=== PATIENT | female | born 1950 | race Caucasian/White ===

== ENCOUNTER 2022-02-03 11:23 | Emergency (ER) | payer MEDICARE ==
[2022-02-03 12:05] LABS: Absolute Neutrophil Ct (ANC) 4.91 x10^3/uL (1.4-6.9); Basophil (Absolute #) 0.02 x10^3/uL (0-0.4); Eosinophil % 1.3 % (0.00-5.0); Eosinophil (Absolute #) 0.08 x10^3/uL (0-0.5); Hemoglobin 11.9 g/dL (12.0-16.0); Lymphocyte (Absolute #) 0.72 x10^3/uL (1.0-4.6); Lymphocytes % 11.7 % (24.0-44.0); Mean Corpuscular Hemoglobin 31.1 pg (26-32); Mean Corpuscular Hgb Concent. 33.1 g/dL (32-36); Mean Platelet Volume 9.4 fL (7.5-11.0); Monocyte (Absolute #) 0.39 x10^3/uL (0.0-1.3); Monocytes % 6.3 % (0.0-12.0); Neutrophil % 79.8 % (36.0-66.0); Platelet Count 189 x10^3/uL (150-450); Red Blood Count 3.83 x10^6/uL (4.1-5.4); Red Cell Distribution Width 14.3 % (11.5-14.0); White Blood Count 6.2 x10^3/uL (4.0-10.5)
--- NOTE | 2022-02-03 12:25 | XRAY ---
Exam: AP upright portable chest film from 02/03/2022. Comparison: CT of the chest without IV contrast from 06/14/2021. Indication: 71-year-old female with chest pain. Findings: The transverse heart size appears towards the upper limits of normal. I believe there is some coronary artery vascular calcification overlying the left side of the heart. Calcification of the aortic arch and mild tortuosity of the descending thoracic aorta are seen. The aisha and mediastinal structures appear otherwise unremarkable. No significant central perihilar vascular congestion is seen. There is a minimal pleural reaction within a fissure overlying the right midlung field. Mild plate atelectasis is seen at the lateral left lung base. There are mild bibasilar pleural effusions, left greater than right. No definite air space infiltrates are seen. There is some deviation of the upper lumbar spine toward the right at the inferior margin of the film. The CT bank courier film from 06/14/2021 suggests a mild rotary dextroscoliosis centered at L1-L2. Impression: 1. The heart size appears towards the upper limits of normal. In addition, I see mild bibasilar pleural effusions, left greater than right. Correlate clinically regarding mild chronic CHF or fluid volume overload. I note some apparent coronary artery calcification overlying the left aspect of the heart. 2. Mild discoid atelectasis is seen at the lateral left lung base. 3. No definite air space infiltrates or other acute cardiopulmonary disease is seen.
[2022-02-03 12:59] LABS: ALBUMIN 4.2 g/dL (3.5-5.0); ANION GAP 13.3 MEQ/L (5-15); BILIRUBIN,TOTAL 0.6 mg/dL (0.2-1.3); Calcium 10.1 mg/dL (8.4-10.2); Creatinine 1 3.43 mg/dL (0.52-1.04); Potassium 3.5 mmol/L (3.5-5.1); Total Protein 7.7 g/dL (6.3-8.2)
[2022-02-03] MEDS ORDERED: CLONIDINE 0.1 MG TABLET PO ONE ×2 (13:03→13:40)
--- NOTE | 2022-02-03 13:03 | ERPHSYRPT ---
- History of Present Illness Time Seen by Provider: 02/03/22 11:35 Historian: patient Exam Limitations: no limitations Patient Subjective Stated Complaint: Pt was at dialysis and began having chest pain that lasted for 10 minutes Triage Nursing Assessment: Pt brought to the ER by EMS, hypertensive, denies chest pain at this time but does have arm pain from an injury this past month, pulses normal, skin n/w/d, no jvd, doesn't appear to be in any distress Physician History: Patient is a 71-year-old dialysis patient who was in dialysis when she developed chest pain and high blood pressure. She was sent from dialysis because of this chest pain. She arrived by ambulance she denies any chest pain on arrival she denies any shortness of breath her risk factors include hypertension diabetes smoking but negative for family history her cholesterol. Timing/Duration: today Activities at Onset: other (Patient was finishing dialysis) Quality: pressure Location: central Chest Pain Radiation: no radiation Severity of Pain-Max: moderate Severity of Pain-Current: none Modifying Factors: Improves With: rest Nitro Today/Relief: no nitro taken today Aspirin Treatment Today: no aspirin today Allergies/Adverse Reactions: azithromycin [From Zithromax] Allergy (Verified 02/03/22 11:47) erythromycin base Allergy (Verified 02/03/22 11:47) Penicillins Allergy (Verified 02/03/22 11:47) shellfish derived Allergy (Verified 02/03/22 11:47) Travel Risk - International Travel Have you traveled outside of the country in past 3 weeks: No - Coronavirus Screening Are you exhibiting any of the following symptoms?: No Close contact with a COVID-19 positive Pt in past 14-21 Days: No - Vaccine Status Have you recieved a Covid-19 vaccination: Yes 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: [employer] - Vaccination Dates Date of 2cond Vaccination (if applicable): 2020 - Past Medical History Pertinent Past Medical History: Yes ENT History: Other Cardiac History: Hypertension Respiratory History: COPD Endocrine Medical History: Diabetes Type II, Other Musculoskeletal History: Degenerative Disk Disease, Fractures History: Dialysis, Renal Disease Other Medical History: neuropathy in feet - Past Surgical History Past Surgical History: Yes Cardiac: Cardiac Stent Musculoskeletal: Orthopedic Surgery Female Surgical History: Hysterectomy - Social History Smoking Status: Current every day smoker Exposure to second hand smoke: Yes Drug Use: none Patient Lives Alone: No - Nursing Vital Signs Nursing Vital Signs: Initial Vital Signs Pulse Rate 67 08/05/22 11:28 Respiratory Rate 16 02/03/22 11:28 Blood Pressure 197/77 02/03/22 11:28 O2 Sat by Pulse Oximetry 97 02/03/22 11:28 Pain Scale Pain Intensity 5 - Physical Exam General Appearance: mild distress Eye Exam: PERRL/EOMI, eyes nml inspection Ears, Nose, Throat Exam: normal ENT inspection, moist mucous membranes Neck Exam: normal inspection, non-tender, supple, full range of motion Respiratory Exam: normal breath sounds, lungs clear, No respiratory distress Cardiovascular Exam: regular rate/rhythm, normal heart sounds Gastrointestinal/Abdomen Exam: soft, No tenderness, No mass Pelvic Exam: not done Rectal Exam: deferred Back Exam: normal inspection, No CVA tenderness, No vertebral tenderness Extremity Exam: other (Patient has a recent injury to the left upper extremity which apparently is caused a neuropathy primarily affecting the radial nerve she cannot extend her fingers that is under treatment by her PCP and other specialist.) Neurologic Exam: alert, oriented x 3, motor deficits (Left extremity) Skin Exam: normal color, warm, dry SpO2 Interpretation: normal SpO2: 94 O2 Delivery: Room Air - Course Nursing assessment & vital signs reviewed: Yes EKG Interpreted by Me: RATE (67), Sinus Rhythm, prolonged QT interval, Other (Poor R wave progression slightly prolonged QT interval) - Radiology Exams Chest X-ray Interpretation: Reviewed by me Ordered Tests: Active Orders 24 hr Category Date Time Status EKG-ER Only STAT Care 02/03/22 11:39 Active IV Insertion STAT Care 02/03/22 11:39 Active CHEST 1 VIEW (PORTABLE) Stat Exams 02/03/22 11:40 Completed CBC W DIFF Stat Lab 02/03/22 12:00 Completed CMP Stat Lab 02/03/22 12:00 Completed Lactic Acid Stat Lab 02/03/22 11:55 Completed NT PRO BNP Stat Lab 02/03/22 12:00 Completed TROPONIN Q4HX3 Lab 02/03/22 12:00 Completed UA W/RFX CULTURE Stat Lab 02/03/22 Ordered Medication Summary Discontinued Medications Generic Name Dose Route Start Last Admin Trade Name Freq PRN Reason Stop Dose Admin Clonidine Confirm 02/03/22 13:04 Clonidine Hcl 0.1 Mg Tablet Administered 02/03/22 13:05 Dose 0.1 mg .ROUTE .STK-MED ONE Clonidine 0.1 mg 02/03/22 13:03 02/03/22 13:06 Clonidine Hcl 0.1 Mg Tablet PO 02/03/22 13:04 0.1 mg STAT ONE Administration Clonidine 0.1 mg 02/03/22 13:40 02/03/22 13:49 Clonidine Hcl 0.1 Mg Tablet PO 02/03/22 13:41 0.1 mg STAT ONE Administration Clonidine Confirm 02/03/22 13:46 Clonidine Hcl 0.1 Mg Tablet Administered 02/03/22 13:47 Dose 0.1 mg .ROUTE .STK-MED ONE Hydralazine HCl 100 mg 02/03/22 13:38 02/03/22 13:45 Hydralazine Hcl 25 Mg Tablet PO 02/03/22 13:39 Not Given ONCE STA Hydralazine HCl 100 mg 02/03/22 13:45 02/03/22 13:49 Hydralazine Hcl 20 Mg/Ml Vial IV 02/03/22 13:46 100 mg STAT ONE Administration Hydralazine HCl Confirm 02/03/22 13:47 Hydralazine Hcl 20 Mg/Ml Vial Administered 02/03/22 13:48 Dose 100 mg .ROUTE .[facility] ONE Lab/Rad Data: Laboratory Result Diagrams 02/03/22 12:00 02/03/22 12:00 Laboratory Results 02/03/22 02/03/22 02/03/22 Range/Units 12:00 12:00 12:00 WBC 6.2 (4.0-10.5) x10^3/uL RBC 3.83 L (4.1-5.4) x10^6/uL Hgb 11.9 L (12.0-16.0) g/dL Hct 36.0 (35-47) % MCV 94.0 (78-100) fL MCH 31.1 (26-32) pg MCHC 33.1 (32-36) g/dL RDW 14.3 H (11.5-14.0) % Plt Count 189 (150-450) x10^3/uL MPV 9.4 (7.5-11.0) fL Gran % 79.8 H (36.0-66.0) % Immature Gran % (Auto) 0.6 H (0.00-0.4) % Nucleat RBC Rel Count 0.0 (0.00-0.1) % Eos # (Auto) 0.08 (0-0.5) x10^3/uL Immature Gran # (Auto) 0.04 H (0.00-0.03) x10^3u/L Absolute Lymphs (auto) 0.72 L (1.0-4.6) x10^3/uL Absolute Monos (auto) 0.39 (0.0-1.3) x10^3/uL Absolute Nucleated RBC 0.00 (0.00-0.01) x10^3u/L Lymphocytes % 11.7 L (24.0-44.0) % Monocytes % 6.3 (0.0-12.0) % Eosinophils % 1.3 (0.00-5.0) % Basophils % 0.3 (0.0-0.4) % Absolute Granulocytes 4.91 (1.4-6.9) x10^3/uL Basophils # 0.02 (0-0.4) x10^3/uL Sodium 135 L (137-145) mmol/L Potassium 3.5 (3.5-5.1) mmol/L Chloride 97 L (98-107) mmol/L Carbon Dioxide 28 (22-30) mmol/L Anion Gap 13.3 (5-15) MEQ/L BUN 18 H (7-17) mg/dL Creatinine 3.43 H (0.52-1.04) mg/dL Estimated GFR 14.0 ML/MIN Glucose 123 H (74-106) mg/dL Lactic Acid (0.4-2.0) Calcium 10.1 (8.4-10.2) mg/dL Total Bilirubin 0.60 (0.2-1.3) mg/dL AST 31 (14-36) U/L ALT 20 (0-35) U/L Alkaline Phosphatase 89 (38-126) U/L Troponin I 0.021 (0.000-0.034) ng/mL NT-Pro-B Natriuret Pep 00656 H (0-900) pg/mL Serum Total Protein 7.7 (6.3-8.2) g/dL Albumin 4.2 (3.5-5.0) g/dL 02/03/22 Range/Units 11:55 WBC (4.0-10.5) x10^3/uL RBC (4.1-5.4) x10^6/uL Hgb (12.0-16.0) g/dL Hct (35-47) % MCV (78-100) fL MCH (26-32) pg MCHC (32-36) g/dL RDW (11.5-14.0) % Plt Count (150-450) x10^3/uL MPV (7.5-11.0) fL Gran % (36.0-66.0) % Immature Gran % (Auto) (0.00-0.4) % Nucleat RBC Rel Count (0.00-0.1) % Eos # (Auto) (0-0.5) x10^3/uL Immature Gran # (Auto) (0.00-0.03) x10^3u/L Absolute Lymphs (auto) (1.0-4.6) x10^3/uL Absolute Monos (auto) (0.0-1.3) x10^3/uL Absolute Nucleated RBC (0.00-0.01) x10^3u/L Lymphocytes % (24.0-44.0) % Monocytes % (0.0-12.0) % Eosinophils % (0.00-5.0) % Basophils % (0.0-0.4) % Absolute Granulocytes (1.4-6.9) x10^3/uL Basophils # (0-0.4) x10^3/uL Sodium (137-145) mmol/L Potassium (3.5-5.1) mmol/L Chloride (98-107) mmol/L Carbon Dioxide (22-30) mmol/L Anion Gap (5-15) MEQ/L BUN (7-17) mg/dL Creatinine (0.52-1.04) mg/dL Estimated GFR ML/MIN Glucose (74-106) mg/dL Lactic Acid 0.8 (0.4-2.0) Calcium (8.4-10.2) mg/dL Total Bilirubin (0.2-1.3) mg/dL AST (14-36) U/L ALT (0-35) U/L Alkaline Phosphatase (38-126) U/L Troponin I (0.000-0.034) ng/mL NT-Pro-B Natriuret Pep (0-900) pg/mL Serum Total Protein (6.3-8.2) g/dL Albumin (3.5-5.0) g/dL - Progress Progress: improved Air Movement: good Blood Culture(s) Obtained: No Antibiotics given: No - Departure Departure Disposition: Home Clinical Impression: Chest pain, Hypertension Condition: Stable Critical Care Time: No Referrals: MARTHA LANDERS [Primary Care Provider] - Follow up/PCP as directed Instructions: Chest Pain (DC) Additional Instructions: Patient was instructed to follow-up with her corporate security manager who is treating her blood pressure which is Dr. Bradley and to use the increased hydralazine dose
[2022-02-03] MEDS ORDERED: CLONIDINE 0.1 MG TABLET ONE ×2 (13:04→13:46)
[2022-02-03] MEDS ORDERED: Apresoline 25 MG TABLET PO STA (13:38)
[2022-02-03] MEDS ORDERED: APRESOLINE 20 MG/ML INJ IV ONE (13:45)
[2022-02-03] MEDS ORDERED: APRESOLINE 20 MG/ML INJ ONE (13:47)
[2022-02-03 14:09] VITALS: PULSE 63
[2022-02-03 15:11] VITALS: BP 171/67; O2SAT 99
== END 2022-02-03 15:29 | disposition home or self-care (01) ==
LOC: ED 11:23
DX: R07.9 Chest pain, unspecified (principal); I12.0 Hypertensive chronic kidney disease with stage 5 chronic kidney disease or end stage renal disease; E11.22 Type 2 diabetes mellitus with diabetic chronic kidney disease; N18.6 End stage renal disease; Z99.2 Dependence on renal dialysis; J44.9 Chronic obstructive pulmonary disease, unspecified; E11.42 Type 2 diabetes mellitus with diabetic polyneuropathy; Z72.0 Tobacco use
CPT/HCPCS: 36000; 36415; 71045; 80053; 83605; 83880; 84484; 85025; 93005; 96374; 99284; J0360; A9270-GY

== ENCOUNTER 2022-10-16 12:23 | Day surgery (SDC) | payer MEDICARE ==
[2022-10-16 13:28] LABS: Hematocrit 33.1 % (35-47); Mean Cell Volume 97.1 fL (78-100); Mean Corpuscular Hemoglobin 32.3 pg (26-32); Mean Corpuscular Hgb Concent. 33.2 g/dL (32-36); Mean Platelet Volume 9.9 fL (7.5-11.0); Platelet Count 285 x10^3/uL (150-450); Red Blood Count 3.41 x10^6/uL (4.1-5.4); Red Cell Distribution Width 15.5 % (11.5-14.0); White Blood Count 5.5 x10^3/uL (4.0-10.5)
[2022-10-16] MEDS ORDERED: CLINDAMYCIN-D5W 900 MG/50 ML*** 900 MG/50 ML BAG IV SCH (13:30)
[2022-10-16] MEDS ORDERED: Lactated Ringers 1,000 ML IV SCH (13:30)
[2022-10-16] MEDS ORDERED: Lactated Ringers 1,000 ML IV ONE (13:51)
[2022-10-16] MEDS ORDERED: CLINDAMYCIN-D5W 900 MG/50 ML*** 900 MG/50 ML BAG IV ONE (13:51)
[2022-10-16 14:04] LABS: ANION GAP 16.4 MEQ/L (5-15); BILIRUBIN,TOTAL 0.9 mg/dL (0.2-1.3); Calcium 10.2 mg/dL (8.4-10.2); Creatinine 1 2.84 mg/dL (0.52-1.04); EST GLOMERULAR FILTRATION RATE 17.5 ML/MIN; Total Protein 9.4 g/dL (6.3-8.2)
[2022-10-16] MEDS ORDERED: Versed 2 MG/2 ML Injection ONE (15:00)
[2022-10-16] MEDS ORDERED: Marcaine Mpf 0.5% Vial 30 Ml ONE (15:06)
[2022-10-16] MEDS ORDERED: NORCO 5/325 MG PO PRN (16:25)
[2022-10-16] MEDS ORDERED: Compazine 5 MG PO PRN (17:12)
[2022-10-16] MEDS ORDERED: MILK OF MAGNESIA 30 ML PO PRN (17:12)
[2022-10-16] MEDS ORDERED: NON-FORMULARY ITEM (Albuterol Sulfate [Proair Respiclick] 90 MCG Aer.Pow.Ba) IH PRN (17:12)
[2022-10-16] MEDS ORDERED: TYLENOL EXTRA STRENGTH 500 MG PO PRN (17:12)
[2022-10-16] MEDS ORDERED: ULTRAM 50 MG PO PRN (17:12)
[2022-10-16] MEDS ORDERED: VELTASSA PO SCH (17:15)
[2022-10-16] MEDS ORDERED: VENTOLIN COMMON CANISTER IH PRN (17:23)
[2022-10-16] MEDS ORDERED: MEDICATION INTERVENTION MC SCH ×2 (17:45)
[2022-10-16] MEDS ORDERED: HUMALOG SQ PRN (17:45)
[2022-10-16] MEDS: CLONIDINE 0.1 MG TABLET PO SCH ×2 (18:00→21:09)
[2022-10-16] MEDS: Apresoline 25 MG TABLET PO SCH ×2 (18:00→21:09)
[2022-10-16] MEDS: Imdur 60MG PO SCH (18:00)
[2022-10-16] MEDS: Lantus Insulin SQ SCH (18:02)
[2022-10-16] MEDS: NORCO 5/325 MG PO PRN (19:15)
[2022-10-16] MEDS: Zestril 20 MG PO SCH (21:10)
[2022-10-16] MEDS: xanAX 0.5 MG PO SCH ×2 (21:10→21:14)
[2022-10-16] MEDS: Protonix 40MG Tablet PO SCH (21:10)
[2022-10-16] MEDS: Trandate 100 MG PO SCH (21:10)
[2022-10-16] MEDS ORDERED: MELATONIN 3 MG PO SCH (22:00)
[2022-10-16] MEDS ORDERED: DOXAZOSIN MESYLATE 4 MG PO SCH (22:00)
[2022-10-16] MEDS ORDERED: MELATONIN PO SCH (22:00)
[2022-10-16] MEDS ORDERED: NON-FORMULARY ITEM (Hydralazine Hcl [Hydralazine Hcl] 100 MG Tablet) PO SCH (22:00)
[2022-10-16] MEDS ORDERED: xanAX 0.25 MG PO SCH (22:00)
[2022-10-17] MEDS: NORCO 5/325 MG PO PRN ×2 (03:06→09:18)
[2022-10-17] MEDS ORDERED: NON-FORMULARY ITEM (Insulin Lispro 1 UNIT Ml) SQ SCH (10:00)
[2022-10-17] MEDS ORDERED: MINOXIDIL 10 MG PO SCH (10:00)
[2022-10-17] MEDS: CLONIDINE 0.1 MG TABLET PO SCH (10:29)
[2022-10-17] MEDS: Protonix 40MG Tablet PO SCH (10:30)
[2022-10-17] MEDS: Apresoline 25 MG TABLET PO SCH ×2 (10:30→13:29)
[2022-10-17] MEDS: Imdur 60MG PO SCH (10:31)
[2022-10-17] MEDS: Lantus Insulin SQ SCH (10:31)
[2022-10-17] MEDS: xanAX 0.5 MG PO SCH (10:37)
[2022-10-17] MEDS: Zestril 20 MG PO SCH (11:11)
[2022-10-17] MEDS: Trandate 100 MG PO SCH (11:30)
[2022-10-17 11:38] VITALS: O2SAT 95
[2022-10-17 13:29] VITALS: BP 138/60
--- NOTE | 2022-10-17 13:36 | OP ---
SURGERY DATE/TIME: 10/16/2022 1519 PREOPERATIVE DIAGNOSES: 1) Osteomyelitis right great toe. 2) End stage renal disease. 3) Diabetic foot ulcer. 4) Peripheral neuropathy. 5) Diabetes mellitus type II. POSTOPERATIVE DIAGNOSES: 1) Osteomyelitis right great toe. 2) End stage renal disease. 3) Diabetic foot ulcer. 4) Peripheral neuropathy. 5) Diabetes mellitus type II. PROCEDURE: Open amputation right hallux metatarsophalangeal joint. SURGEON: Miguel Ovalle DPM. CARPENTER SUPERVISOR WOODEN SHIP: None. ANESTHESIA: Local. HEMOSTASIS: Pressure dressing. ESTIMATED BLOOD LOSS: Less than 10 cc. MATERIALS: 3-0 Nylon and 0.25 inch Iodoform packing. INJECTABLES: 24 cc of a 1:1 mixture of 1% lidocaine plain and 0.5% bupivacaine plain injected in a Mart block-type fashion. INDICATION FOR SURGERY: Jyotsna is a very pleasant 71-year-old female well known to my service for a wound that developed over the lateral aspect of her great toe approximately six weeks ago. The patient does have multiple comorbidities including but not limited to end stage renal disease, peripheral neuropathy, diabetes mellitus and over the last several days we have proven that she has osteomyelitis which was confirmed with MRI as well as peripheral vascular disease which is being addressed by Dr. Guerrero. Discussion was held in regards to options for patient due to the fact that she does have peripheral vascular disease and end stage renal disease. An infection could be catastrophic and the decision was made to proceed with an amputation in order to prevent the possibility of sepsis and difficulty with IV antibiotics getting rid of the infection. The patient at this time has been managed with oral antibiotics however not been improving. The wound has gotten worse over the last six weeks and at this time agrees to proceed with the amputation. This has been planned in close proximity with her peripheral vascular surgeon, Dr. Guerrero, who was going to proceed on Sunday of next week and revascularize the bilateral lower extremities for the multiple blockages that had been seen giving her a better chance of proceeding without any further amputations at this time. The patient understands all risks, complications and benefits of surgical intervention at this time including but not limited to infection, hematoma, seroma, possibility of delayed wound healing, nonwound healing and possibility of repeat infection and possibility of need for further surgical intervention at a later date. No guarantees have been provided as to the outcome of surgical intervention. Plenty of time was allowed for the patient as well as her daughter to ask questions which were answered to her apparent satisfaction. It is with that we proceed. DESCRIPTION OF PROCEDURE AND FINDINGS: The patient is brought into the OR and placed and placed on the OR table in the supine position. At this time the right lower extremity was prepped and draped in the typical sterile fashion and lower onto the surgical field. At this time, a 24 cc injunction consisting of a 1:1 mixture of 1% lidocaine plain and 0.5% bupivacaine plain was injected in a Mart block-type fashion to the right hallux. At this time a medial racket incision was made utilizing a 10 blade which was carried down to the level of bone. Following this the joint was disarticulated while keeping full thickness flaps to any remaining soft tissue. At this time a 1 liter bag of Bactisure was utilized to flush the surgical site which was then followed by 3 liters of sterile saline. Following this 3-0 Nylon was utilized in a trauma stitch type fashion to partially coapt the surgical site. The central aspect of the surgical site was then packed utilizing iodine soaked 0.25 inch Iodoform packing. Following this, a dressing consisting of iodine, Adaptic, 4x4, Kerlix, ABD and NASRA was applied with minimal compression to the right lower extremity. The patient was then returned to the postoperative anesthesia care unit with vital signs stable and vascular status intact. Postoperative orders as indicated in the patient's discharge chart.
[2022-10-17 14:50] VITALS: PULSE 65
== END 2022-10-17 12:51 | disposition home or self-care (01) ==
LOC: SDC 12:23 → MED SURG 16:25 → SDC 10-17 12:51
PROVIDERS: ATTEND Podiatrist Foot & Ankle Surgery
DX: E11.69 Type 2 diabetes mellitus with other specified complication (principal); E11.621 Type 2 diabetes mellitus with foot ulcer; E11.22 Type 2 diabetes mellitus with diabetic chronic kidney disease; M86.9 Osteomyelitis, unspecified; N18.9 Chronic kidney disease, unspecified; G62.9 Polyneuropathy, unspecified; F41.9 Anxiety disorder, unspecified
CPT/HCPCS: 36415; 80053; 82947; 85027; 87070; 87075; A6260; J2250; A9270-GY

== ENCOUNTER 2022-10-23 12:56 | Day surgery (SDC) | payer MEDICARE ==
[~2022-10-23 12:56] MED LIST: Marcaine Mpf 0.5% Vial 30 Ml ONE; Xylocaine 1% Vial 30 ML PF IJ ONE
[2022-10-23] MEDS ORDERED: Versed 2 MG/2 ML Injection IV ONE (12:57)
[2022-10-23] MEDS ORDERED: CLINDAMYCIN-D5W 900 MG/50 ML*** 900 MG/50 ML BAG IV STA (13:35)
[2022-10-23] MEDS ORDERED: Sodium Chloride 0.9% 1000 ML 1,000 ML IV SCH (13:45)
[2022-10-23 14:03] VITALS: PULSE 79; O2SAT 97
[2022-10-23 16:38] VITALS: BP 181/78
--- NOTE | 2022-10-24 09:50 | OP ---
SURGERY DATE/TIME: 10/23/2022 1532 PREOPERATIVE DIAGNOSES: 1) Osteomyelitis right great toe. 2) Diabetic foot wound. 3) Peripheral vascular disease. 4) Peripheral neuropathy secondary to diabetes type II. 5) Pain right foot. POSTOPERATIVE DIAGNOSES: 1) Osteomyelitis right great toe. 2) Diabetic foot wound. 3) Peripheral vascular disease. 4) Peripheral neuropathy secondary to diabetes type II. 5) Pain right foot. PROCEDURE: Incision and drainage with bone debridement right foot as well as delayed primary closure. SURGEON: Miguel Ovalle DPM. SOUND TECHNICIAN SUPERVISOR: None. ANESTHESIA: None. The patient is largely neuropathic. HEMOSTASIS: Pressure dressing. ESTIMATED BLOOD LOSS: Minimal. INJECTABLES: None. INDICATION FOR SURGERY: Jyotsna is a very pleasant 71-year-old female who presented to my service several weeks ago with concern of an ingrown toenail to the right lower extremity this was taken care of with a procedure in office that was noninvasive just relieving with nail nipper. Following this there was some difficulty with healing this area. The patient does have long standing history of peripheral vascular disease as well as neuropathy to the right lower extremity. At this time the patient did have MRI and this was diagnosed to have osteomyelitis. Options were discussed with the patient and in coordination with peripheral vascular surgery we have decided to proceed with eradicating the infection and closure prior to her getting revascularization to the right lower extremity tomorrow. The patient has already undergone the first stage of the procedure that included the amputation of the proximal and distal phalanx of the right great toe. At this time the patient understands all risks, complications and benefits of surgical intervention at this time including but not limited to infection, hematoma, seroma, possibility of delayed wound healing or nonwound healing and possibility recurrent infection and possibility of need for repeat surgical intervention at a later date. No guarantees were provided as to the outcome of surgical intervention. It is with that we decided to proceed at this time. DESCRIPTION OF PROCEDURE AND FINDINGS: The patient is brought into the OR and placed on the OR table in the supine position. At this time the right lower extremity prepped and draped in the typical sterile fashion and lowered onto the surgical field. At this time attention was directed to the open area at the distal tip of the amputation site this was deepened along the fascial planes removing the suture. It demonstrated some residual hematoma however no significant indicators of bone infection or soft tissue infection. The edge was incised demonstrating a poorly healing edge. Hopefully this will be resolved with Dr. Guerrero with the revascularization. At this time bone debridement was performed utilizing a combination of rongeurs and curettes to the first metatarsal. Following this, copious amounts of sterile saline were utilized in Pulsavac-type fashion to flush the surgical site. Following this, a 15 blade was utilized to plan for closure of the wound. At this time a complex closure of the wound was carried out utilizing 4-0 Monocryl in a simple buried interrupted-type fashion as well as 3-0 Nylon for skin closure in a horizontal mattress-type fashion for eversion of the skin edges. Following this, a dressing consisting of Betadine, Adaptic, 4x4, Kerlix and NASRA was then applied to the patient's right lower extremity. The patient was then returned to the preoperative care unit with vital signs and vascular status intact. The patient handled the anesthesia as well as the procedure without significant complication. Postoperative orders as indicated in the patient's discharge chart.
== END 2022-10-23 16:30 | disposition home or self-care (01) ==
LOC: SDC 12:56
PROVIDERS: ATTEND Podiatrist Foot & Ankle Surgery
DX: M86.9 Osteomyelitis, unspecified (principal); S91.101A Unspecified open wound of right great toe without damage to nail, initial encounter; I73.9 Peripheral vascular disease, unspecified; E11.42 Type 2 diabetes mellitus with diabetic polyneuropathy; M79.671 Pain in right foot
CPT/HCPCS: 82947; J2001; J2250

== ENCOUNTER 2022-12-14 06:38 | Day surgery (SDC) | payer MEDICARE ==
[2022-12-14 06:29] LABS: Hematocrit 45.7 % (35-47); Hemoglobin 14.6 g/dL (12.0-16.0); Mean Cell Volume 96.2 fL (78-100); Mean Corpuscular Hemoglobin 30.7 pg (26-32); Mean Corpuscular Hgb Concent. 31.9 g/dL (32-36); Mean Platelet Volume 9.9 fL (7.5-11.0); Platelet Count 219 x10^3/uL (150-450); Red Blood Count 4.75 x10^6/uL (4.1-5.4); Red Cell Distribution Width 15.6 % (11.5-14.0); White Blood Count 5.3 x10^3/uL (4.0-10.5)
[~2022-12-14 06:38] MED LIST changes: +CLINDAMYCIN-D5W 900 MG/50 ML*** 900 MG/50 ML BAG IV ONE; +Lactated Ringers 1,000 ML IV ONE; +Sodium Chloride 0.9% 500 ML 500 ML IV ONE; +Sodium Chloride 0.9% 500 ML 500 ML IV SCH; +Versed 2 MG/2 ML Injection IV ONE
[2022-12-14 06:45] LABS: INR 0.98 (0.8-3.0); PROTIME 10.7 SECONDS (9.4-12.5); PTT 27.1 SECONDS (25.1-36.5)
[2022-12-14 07:37] LABS: ALBUMIN 4.7 g/dL (3.5-5.0); ANION GAP 19.6 MEQ/L (5-15); BILIRUBIN,TOTAL 0.6 mg/dL (0.2-1.3); Calcium 9.9 mg/dL (8.4-10.2); Creatinine 1 4.89 mg/dL (0.52-1.04); EST GLOMERULAR FILTRATION RATE 9.3 ML/MIN
[2022-12-14] MEDS ORDERED: Versed 2 MG/2 ML Injection ONE (10:26)
[2022-12-14 11:10] VITALS: PULSE 91
--- NOTE | 2022-12-14 12:51 | XRAY ---
Indication: Partial resection right 1st metatarsal. Intraoperative fluoroscopy provided for 14 seconds. 6 digital spot images submitted for interpretation demonstrates amputation great toe and head 1st metatarsal. Correlate with intraoperative findings/report.
[2022-12-14 13:19] VITALS: BP 170/69; O2SAT 99
--- NOTE | 2022-12-14 14:17 | XRAY ---
14 seconds of fluoroscopy was used in surgery for a partial resection of the right 1st metatarsal.
--- NOTE | 2022-12-15 08:40 | OP ---
SURGERY DATE/TIME: 12/14/2022 1148 PREOPERATIVE DIAGNOSES: 1) Osteomyelitis first metatarsal and fifth metatarsal. 2) Diabetic foot wound. 3) Peripheral neuropathy. 4) Peripheral vascular disease. 5) End stage renal failure on dialysis. POSTOPERATIVE DIAGNOSES: 1) Osteomyelitis first metatarsal and fifth metatarsal. 2) Diabetic foot wound. 3) Peripheral neuropathy. 4) Peripheral vascular disease. 5) End stage renal failure on dialysis. PROCEDURES: 1) Partial first metatarsal amputation. 2) Abductor hallucis muscle flap. 3) Complex closure foot wound. 4) Incision and drainage with bone debridement of fifth metatarsal. 5) Complex closure of diabetic foot wound lateral foot. SURGEON: Miguel Ovalle DPM. RETAINING ROOM CUTTER: None. ANESTHESIA: Local. HEMOSTASIS: Pressure dressing. ESTIMATED BLOOD LOSS: Less than 20 cc. MATERIALS: Suturegard, 2-0 Nylon, 3-0 Nylon, 4-0 Monocryl. Vancomycin powder 1 gm. INJECTABLES: 20 cc of 1:1 mixture of 1% lidocaine plain and 0.5% bupivacaine plain injected in an ankle block-type fashion preoperatively. INDICATION FOR PROCEDURE: Jyotsna is a very pleasant 72-year-old female well known to my service for diabetic foot ulcers that have led to amputation secondary to osteomyelitis. At this time the patient had been progressing without significant complication. However, he has been dealing with a wound dehiscence to the amputation site and has developed a new wound over the lateral aspect of the styloid process of the fifth metatarsal. As a result, the patient has had a hard time healing these areas and with the exposed bone at the first metatarsal discussion was held in regards to timeline before this becomes problematic and the potential for infection of the bone. The patient understands this and wished to proceed with further intervention. The patient understands all risks, complications and benefits of surgical intervention at this time including but not limited to infection, hematoma, seroma, possibility of delayed wound healing, nonwound healing, and possible need for surgical intervention at a later date. No guarantees were provided as to the outcome of surgical intervention. Plenty of time was allowed for the patient to ask questions which were answered to the patient's apparent satisfaction. It is with that we decided to proceed. DESCRIPTION OF PROCEDURE AND FINDINGS: Jyotsna is brought into the OR and placed on the OR table in the supine position. At this time a 30 cc block of a 1:1 mixture of 1% lidocaine plain and 0.5% bupivacaine plain was injected in an ankle block type fashion to the right lower extremity. At this time the right foot was prepped and draped and lowered onto the surgical field. Attention was directed to the right foot where the wound dehiscence was identified as well as the metatarsal wound was identified. The wound was excised and full thickness flaps were elevated off of the first metatarsal. An 18 mm blade was utilized to resect the first metatarsal at its midpoint. Following this, the sesamoids were then removed and sent for pathologic assessment and handed off the field. At this time, a 15 blade was then utilized to excise the lateral foot wound doing an incision down to level of bone and tendons excising the wound in total. At this time 3 liters of sterile saline were then utilized to flush both sites. An abductor hallucis muscle flap was then harvested. Gloves were then changed and all instrumentation was changed out for clean instrumentation. A clean 15 blade is then utilized to harvest the abductor hallucis muscle belly which then was secured to the periosteum of the remnant of the first metatarsal this was secured and the medullary cavity was completely closed off. Following this, a curette was utilized to debride the bone at the fifth metatarsal taking bone biopsies of this area as well and handing them off of the field for pathologic assessment. Both incisions were then closed utilizing three Suturegards, two to the medial aspect and one to the lateral aspect centrally utilizing 2-0 Nylon in vertical mattress-type fashion to coapt the skin edges and then 3-0 Nylon to coapt the skin edges in horizontal mattress-type fashion everting the edges under minimal tension. Following this, the foot was cleansed. A dressing consisting of Betadine, Adaptic, 4x4, Kerlix and NASRA was applied to the patient's right lower extremity. The patient was then returned to the preoperative area with vital signs stable and vascular status intact. The patient handled the anesthesia as well as procedure without significant complication. Postoperative orders as indicated in the patient's discharge chart.
== END 2022-12-14 13:42 ==
LOC: ED 06:38 → EDSTATUS 06:38 → SDC 08:49
PROVIDERS: ATTEND Podiatrist Foot & Ankle Surgery
DX: M86.9 Osteomyelitis, unspecified (principal); E11.621 Type 2 diabetes mellitus with foot ulcer; E11.42 Type 2 diabetes mellitus with diabetic polyneuropathy; I73.9 Peripheral vascular disease, unspecified; E11.22 Type 2 diabetes mellitus with diabetic chronic kidney disease; N18.6 End stage renal disease
CPT/HCPCS: 36415; 73630; 76000; 80053; 82947; 85027; 85610; 85730; 87070; J2001; J2250

== ENCOUNTER 2022-12-14 06:41 | Emergency (ER) | payer MEDICARE ==
[2022-12-14 06:50] VITALS: PULSE 78
[2022-12-14] MEDS ORDERED: APRESOLINE 20 MG/ML INJ IV ONE (06:57)
[2022-12-14] MEDS ORDERED: APRESOLINE 20 MG/ML INJ ONE (06:58)
[2022-12-14 07:14] VITALS: BP 177/64; O2SAT 98
--- NOTE | 2022-12-14 07:33 | ERPHSYRPT ---
- History of Present Illness Time Seen by Provider: 12/14/22 07:27 Source: patient, other Exam Limitations: no limitations Patient Subjective Stated Complaint: Pt was brought to ED by outpatient surgery nurse due to blood pressure being 223/90 and 232/82 in outpatient. Pt was there to have surgery/debridement on right foot. Per [facility]ILB[facility] outpatient surgery nurse Dr Adams is planning to continue with surgery once blood pressure lowers. Triage Nursing Assessment: Pt alert and oriented x3. No apparent respiratory distress. Brought to ED by outpatient surgery nurse on the outpatient surgery cot. Skin w/p/d. Physician History: 72-year-old female with history of end-stage renal disease on dialysis 3 times a week, hypertension, hyperlipidemia, diabetes mellitus, peripheral neuropathy, big toe amputation scheduled for debridement is sent in ER from outpatient surgery for elevated blood pressure 220s systolic. Patient reports she has not taken her routine morning medications. She denies any chest pain, palpitations or shortness of breath. No headache, dizziness, lightheadedness, blurry vision, focal numbness tingling or weakness. No abdominal pain nausea or vomiting reported. Patient is totally asymptomatic. Plan is to improve blood pressure and patient can go back to surgery as scheduled. Allergies/Adverse Reactions: azithromycin [From Zithromax] Allergy (Verified 12/14/22 06:42) erythromycin base Allergy (Verified 12/14/22 06:42) Penicillins Allergy (Verified 12/14/22 06:42) shellfish derived Allergy (Verified 12/14/22 06:42) Home Medications: ALPRAZolam 0.25 MG [xanAX 0.25 MG] 0.5 mg PO BID 10/13/22 [History] Clonidine HCl 0.1 mg [Clonidine 0.1 mg Tablet] 0.2 mg PO TID 10/13/22 [History] Doxazosin Mesylate [Cardura Xl] 4 mg PO BID 10/13/22 [History] Hydralazine HCl 100 mg PO QID 10/13/22 [History] Insulin Glargine,Hum.rec.anlog [Lantus] 10 unit SQ QAM 10/13/22 [History] Insulin Lispro [Humalog] 0 unit SQ DAILY 10/13/22 [History] Labetalol HCl 100 mg [Trandate 100 MG] 200 mg PO BID 10/13/22 [History] Lisinopril 20 mg [Zestril 20 MG] 20 mg PO BID 10/13/22 [History] Magnesium Hydroxide 30 ml [Milk of Magnesia 30 ml] 30 ml PO DAILY PRN PRN 10/13/22 [History] Melatonin 3 mg PO HS 10/13/22 [History] PANTOPRAZOLE 40 mg Tablet [Protonix 40MG Tablet] 40 mg PO BID 10/13/22 [History] Prochlorperazine Maleate 5 mg* [Compazine 5 MG] 5 mg PO Q6HPRN PRN 10/13/22 [History] Tramadol HCl 50 mg [Ultram 50 mg] 50 mg PO Q8HPRN PRN 10/13/22 [History] minoxidiL [Minoxidil] 10 mg PO DAILY 10/13/22 [History] Acetaminophen 500 mg [Tylenol Extra Strength 500 mg] 500 mg PO Q6HPRN PRN 10/16/22 [History] Isosorbide Mononitrate [Isosorbide Mononitrate ER] 60 mg PO DAILY 10/16/22 [History] Hydrocodone/Acetaminophen [Hydrocodone-Acetamin 7.5-325] 1 each PO Q4H PRN PRN 10/23/22 [History] Albuterol Sulfate [Albuterol Sulfate Hfa] 18 gm IH Q4HPRN PRN 12/13/22 [History] Hx Tetanus, Diphtheria Vaccination/Date Given: Yes Hx Influenza Vaccination/Date Given: Yes Hx Pneumococcal Vaccination/Date Given: Yes Travel Risk - International Travel Have you traveled outside of the country in past 3 weeks: No - Coronavirus Screening Are you exhibiting any of the following symptoms?: No Close contact with a COVID-19 positive Pt in past 14-21 Days: No - Vaccine Status Have you recieved a Covid-19 vaccination: Yes 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 - Review of Systems Constitutional: No Symptoms Eyes: No Symptoms Ears, Nose, & Throat: No Symptoms Respiratory: No Symptoms Cardiac: No Symptoms Abdominal/Gastrointestinal: No Symptoms Genitourinary Symptoms: No Symptoms Musculoskeletal: Joint Swelling Skin: Skin Lesions Neurological: No Symptoms Endocrine: No Symptoms Hematologic/Lymphatic: No Symptoms Immunological/Allergic: No Symptoms - Past Medical History Pertinent Past Medical History: Yes Neurological History: Peripheral Neuropathy ENT History: Other Cardiac History: Congestive Heart Failure, Coronary Artery Disease, Hypertension Respiratory History: CHF, COPD Endocrine Medical History: Diabetes Type II, Other Musculoskeletal History: Degenerative Disk Disease, Fractures GI Medical History: Ulcer History: Dialysis, Renal Disease Psycho-Social History: No Pertinent History Female Reproductive Disorders: No Pertinent History Other Medical History: neuropathy in feet - Past Surgical History Past Surgical History: Yes Neuro Surgical History: No Pertinent History Cardiac: Cardiac Stent Respiratory: No Pertinent History Gastrointestinal: No Pertinent History Genitourinary: No Pertinent History Musculoskeletal: Orthopedic Surgery, Other Female Surgical History: Hysterectomy Other Surgical History: right ankle. left arm fistula. R great toe amputation, debridments - Social History Smoking Status: Former smoker Exposure to second hand smoke: Yes Drug Use: none Patient Lives Alone: Yes - Nursing Vital Signs Nursing Vital Signs: Initial Vital Signs Temperature 97.6 F 12/14/22 06:41 Pulse Rate 78 12/14/22 06:41 Respiratory Rate 16 12/14/22 06:41 Blood Pressure 209/73 12/14/22 06:41 O2 Sat by Pulse Oximetry 96 12/14/22 06:41 Pain Scale Pain Intensity 0 - Physical Exam General Appearance: no apparent distress Eye Exam: PERRL/EOMI Ears, Nose, Throat Exam: normal ENT inspection Neck Exam: normal inspection Respiratory Exam: normal breath sounds, lungs clear Cardiovascular Exam: regular rate/rhythm, normal heart sounds Back Exam: normal inspection, normal range of motion Extremity Exam: other (Right foot big toe amputation, wrapped with Matteo bandage.) Neurologic Exam: alert, oriented x 3, cooperative Skin Exam: normal color SpO2 Interpretation: normal SpO2: 98 O2 Delivery: Room Air Ordered Tests: Medication Summary Discontinued Medications Generic Name Dose Route Start Last Admin Trade Name Freq PRN Reason Stop Dose Admin Hydralazine HCl 20 mg 12/14/22 06:57 12/14/22 06:59 Hydralazine Hcl 20 Mg/Ml Vial IV 12/14/22 06:58 20 mg STAT ONE Administration Hydralazine HCl Confirm 12/14/22 06:58 Hydralazine Hcl 20 Mg/Ml Vial Administered 12/14/22 06:59 Dose 20 mg .ROUTE .STK-MED ONE - Progress Progress: improved Progress Note: 12/14/22 07:31 72-year-old female with history of end-stage renal disease on dialysis 3 times a week, hypertension, hyperlipidemia, diabetes mellitus, peripheral neuropathy, big toe amputation scheduled for debridement is sent in ER from outpatient surgery for elevated blood pressure 220s systolic. Patient reports she has not taken her routine morning medications. She denies any chest pain, palpitations or shortness of breath. No headache, dizziness, lightheadedness, blurry vision, focal numbness tingling or weakness. No abdominal pain nausea or vomiting reported. Patient is totally asymptomatic. Plan is to improve blood pressure and patient can go back to surgery as scheduled. She is given hydralazine by Dr. Mckinnon, during my interview patient is asymptomatic and denies having any symptoms/signs of endorgan damage. Patient reports her blood pressure usually runs around 180 and has not taken her routine medications. Blood pressure improved to 150s. Patient has a blood sugar of 71, has not taken anything for over 8 hours. She is given orange juice as patient would be going to have local anesthesia for debridement. I have spoken with the OR staff, Dr. Rivera is okay with this blood pressure and patient would be taken back to the OR. Discussed signs symptoms of worsening needing return to ER which patient seems understanding. Counseled pt/family regarding: diagnosis, need for follow-up Medical Desision Making - Discussion of managment Care discussed with:: specialist (Luggage Attendant, Dr. Rivera) Will see patient: in hospital - Departure Departure Disposition: Release to OR/NHC Clinical Impression: Uncontrolled hypertension Condition: Stable Critical Care Time: No Referrals: MARTHA LANDERS [Primary Care Provider] - Follow up with PCP 1 day Instructions: Malignant Hypertension (DC) Additional Instructions: Monitor your blood sugar GERD and blood pressure regularly, keep a log and follow-up with primary care for reevaluation and to see if needs some medication changes. Return to ER for uncontrolled blood pressure or if having headache, dizziness, blurry vision, chest pain palpitations or shortness of breath etc.
== END 2022-12-14 07:54 | disposition other institution (70) ==
LOC: ED 06:41
DX: I13.2 Hypertensive heart and chronic kidney disease with heart failure and with stage 5 chronic kidney disease, or end stage renal disease (principal); I50.9 Heart failure, unspecified; E11.22 Type 2 diabetes mellitus with diabetic chronic kidney disease; N18.6 End stage renal disease; E11.42 Type 2 diabetes mellitus with diabetic polyneuropathy; E78.5 Hyperlipidemia, unspecified; Z79.4 Long term (current) use of insulin; Z79.891 Long term (current) use of opiate analgesic; Z79.899 Other long term (current) drug therapy; Z99.2 Dependence on renal dialysis
CPT/HCPCS: 36000; 82947; 96374; 99283; J0360